=== PATIENT | male | born 1940 | race Caucasian/White ===

== ENCOUNTER 2016-07-17 14:24 | Emergency (ER) | payer OTHER ==
[2016-07-17 15:00] VITALS: BP 134/89
--- NOTE | 2016-07-17 15:14 | EDM.PDOC ---
[id number] CAN'T SLEEP AND HURT ALL OVER Time Seen by Provider: 07/17/16 15:08 Source of Information: Reports: Patient History Limitations: Reports: No limitations - History of Present Illness INITIAL COMMENTS - FREE TEXT/NARRATIVE: pt arrived with high temp and total body aches. He had a deer tick bite late in the season. He has not felt well since that time. He has had alot of body aches. Onset: gradual Duration: Day(s):, Other ( Much worse in the last 2 days. ) Location: Reports: generalized Associated Symptoms: Reports: diaphoresis, fever/chills, weakness, other ( total body pain. ) Generalized Pain Score (Numeric/FACES): 7 - Related Data Allergies Allergy/AdvReac Type Severity Reaction Status Date / Time No Known Allergies Allergy Verified 07/17/16 14:53 Home Meds: Home Meds Acetaminophen [Tylenol] 650 mg PO Q4H PRN 07/17/16 [History] Past Medical History HEENT History: Reports: Other (see below) Other HEENT History: hard of hearing Oncologic (Cancer) History: Reports: Prostate Other Oncologic History: 10 years ago - Past Surgical History HEENT Surgical History: Reports: None Musculoskeletal Surgical History: Reports: Other (see below) Other Musculoskeletal Surgeries/Procedures:: steel pins in left wrist Oncologic Surgical History: Reports: None Social & Family History - Tobacco Use Smoking Status *Q: Never Smoker Second Hand Smoke Exposure: No - Caffeine Use Caffeine Use: Reports: Coffee - Alcohol Use Days Per Week of Alcohol Use: 1 Number of Drinks Per Day: 1 Total Drinks Per Week: 1 - Recreational Drug Use Recreational Drug Use: No ED ROS GENERAL - Review of Systems Review Of Systems: See Below Constitutional: Reports: fever, chills, malaise HEENT: Reports: No symptoms Respiratory: Reports: No Symptoms Cardiovascular: Reports: No symptoms Endocrine: Reports: no symptoms GI/Abdominal: Reports: No symptoms : Reports: no symptoms, other ( Pt does have a history of ca of the prostate. ) Musculoskeletal: Reports: muscle pain, muscle stiffness Skin: Reports: no symptoms ED EXAM, GENERAL - Physical Exam Exam: See Below Free Text/Narrative:: Pt arrived with alot of joint pain and a fever. He has not felt well for several weeks. Exam Limited By: No limitations General Appearance: alert, mild distress Ears: normal TMs Nose: normal inspection Throat/Mouth: Normal inspection Head: atraumatic Neck: normal inspection Respiratory/Chest: no respiratory distress Cardiovascular: regular rate, rhythm GI/Abdominal: soft, non tender Rectal (Males) Exam: Deferred Back Exam: normal inspection Extremities: normal inspection Neurological: alert, oriented, normal cognition Course - Vital Signs Last Recorded V/S: Last Vital Signs Temp 38.7 C H 07/17/16 16:40 Pulse 73 07/17/16 14:49 Resp 16 07/17/16 14:49 BP 134/89 07/17/16 14:49 Pulse Ox 96 07/17/16 14:49 - Orders/Labs/Meds Labs: Laboratory Tests 07/17/16 07/17/16 07/17/16 Range/Units 15:24 15:24 15:26 WBC 9.0 (4.5-11.0) K/uL RBC 4.69 (4.30-5.90) M/uL Hgb 15.7 H (12.0-15.0) g/dL Hct 44.6 (40.0-54.0) % MCV 95 (80-98) fL MCH 34 H (27-31) pg MCHC 35 (32-36) % Plt Count 173 (150-400) K/uL Neut % (Auto) 84 H (36-66) % Lymph % (Auto) 8 L (24-44) % [place] % (Auto) 8 H (2-6) % Eos % (Auto) 0 L (2-4) % Baso % (Auto) 0 (0-1) % Sodium 141 (140-148) mmol/L Potassium 4.2 (3.6-5.2) mmol/L Chloride 106 (100-108) mmol/L Carbon Dioxide 25 (21-32) mmol/L Anion Gap 9.9 (5.0-14.0) mmol/L BUN 16 (7-18) mg/dL Creatinine 1.2 (0.8-1.3) mg/dL Est Cr Clr Drug Dosing 49.88 mL/min Estimated GFR (MDRD) 59 L (>60) Glucose 110 H (74-106) mg/dL Calcium 8.6 (8.5-10.1) mg/dL Total Bilirubin 1.4 H (0.2-1.0) mg/dL AST 60 H (15-37) U/L ALT 62 (12-78) U/L Alkaline Phosphatase 70 (46-116) U/L C-Reactive Protein 8.50 H (0.0-0.3) mg/dL Total Protein 7.0 (6.4-8.2) g/dL Albumin 3.2 L (3.4-5.0) g/dL Globulin 3.8 H (2.3-3.5) g/dL Albumin/Globulin Ratio 0.8 L (1.2-2.2) Urine Color Yellow Urine Appearance Clear Urine pH 5.0 (4.5-8.0) Ur Specific Wilmer 1.020 (1.008-1.030) Urine Protein Negative (NEGATIVE) mg/dL Urine Glucose (UA) Normal (NEGATIVE) mg/dL Urine Ketones 15 H (NEGATIVE) mg/dL Urine Occult Blood Moderate (NEGATIVE) Urine Nitrite Negative (NEGAITVE) Urine Bilirubin Negative (NEGATIVE) Urine Urobilinogen Normal (NORMAL) mg/dL Ur Leukocyte Esterase Negative (NEGATIVE) Urine RBC 0-5 (0-5) Urine WBC Not seen (0-5) Ur Epithelial Cells Rare Amorphous Sediment Not seen Urine Bacteria Few Urine Mucus Moderate Meds: Medications Discontinued Medications Generic Name Dose Route Start Last Admin Trade Name [place] PRN Reason Stop Dose Admin Acetaminophen 650 mg 07/17/16 16:21 07/17/16 16:40 Tylenol PO 07/17/16 16:22 650 mg NOW ONE Administration Sodium Chloride 1,000 mls @ 999 mls/hr 07/17/16 16:30 07/17/16 17:00 Normal Saline IV 999 mls/hr ASDIRECTED EDUARDO Administration Doxycycline Hyclate 100 mg/ 100 mls @ 100 mls/hr 07/17/16 16:20 07/17/16 17: 03 Sodium Chloride IV 07/17/16 17:19 100 mls/hr ONETIME ONE Administration - Re-Assessments/Exams Free Text/Narrative Re-Assessment/Exam: 07/17/16 16:49 crp is quite elevated at 8.5. his wbc is not high, platlets borderline. sgot is elevated as is the bilirubin. 07/17/16 16:51 pt had a liter of fluid. He was given tylenol to bring the temp down. He had blood cultures drawn and he was given doxycline 100mg iv. 07/17/16 16:57 Pt had an influ a and b run and they were both neg. Departure - Departure Time of Disposition: 18:20 Disposition: Home, Self-Care 01 Condition: fair Clinical Impression: At high risk for tick borne illness Instructions: Lyme Disease, Ehrlichiosis and Anaplasmosis Referrals: Sanket Gonsalez MD [Primary Care Provider] - Forms: ED Department Discharge Care Plan Goals: push fluids, doxycyline 100mg bid with a small amount of food, will notify regarding tick studies tylenol and motrin for fevers.
[2016-07-17] MEDS ORDERED: Doxycycline 100 MG in Sodium Chloride 0.9% 100 ML IV ONE (16:20)
[2016-07-17] MEDS ORDERED: Acetaminophen 325 MG Tab PO ONE (16:21)
[2016-07-17] MEDS ORDERED: Sodium Chloride 0.9% 1,000 ML IV SCH (16:30)
--- NOTE | 2016-07-18 09:25 | CR ---
Chest 1V Frontal HISTORY: fever COMPARISON: 10/25/2007 FINDINGS: Lungs appear clear and normally aerated. Cardiomediastinal silhouette is within normal limits. No va scular redistribution or pleural fluid can be seen. Bony structures and soft tissues are unremarkabl e. IMPRESSION: No acute chest abnormality identified.
== END 2016-07-17 18:26 | disposition home or self-care (01) ==
LOC: JP.ED 14:24
DX: Z91.89 Other specified personal risk factors, not elsewhere classified (principal); Z85.46 Personal history of malignant neoplasm of prostate
CPT/HCPCS: 36415; 71010; 80053; 81001; 85025; 86140; 86618; 86666; 86698; 87040; 87804; 96365; 99284; A9270; J7030; J7040

== ENCOUNTER 2021-03-11 08:50 | Emergency (ER) | payer OTHER ==
[2021-03-11 09:01] VITALS: BP 156/83; PULSE 51
[2021-03-11] MEDS ORDERED: methylPREDNISolone Sodium Succinate 40 MG/1 ML SDV IM ONE (09:14)
--- NOTE | 2021-03-11 09:19 | EDM.PDOC ---
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 - Related Data Allergies Allergy/AdvReac Type Severity Reaction Status Date / Time No Known Allergies Allergy Verified 02/10/17 08:44 Home Meds: Home Meds Acetaminophen [Tylenol] 650 mg PO Q4H PRN 07/17/16 [History] Aspirin 1 tab PO DAILY 02/08/17 [History] Calcium Citrate/Vitamin D3 [Calcium Citrate + D] 1 tab PO DAILY 02/08/17 [History] Multivitamin [Multivitamins] 1 cap PO DAILY 02/08/17 [History] predniSONE [Prednisone] 20 mg PO DAILY #7 tablet 03/11/21 [Rx] Past Medical History HEENT History: Reports: Other (See Below) Other HEENT History: hard of hearing Oncologic (Cancer) History: Reports: Prostate Other Oncologic History: 10 years ago - Infectious Disease History Infectious Disease History: Reports: Chicken Pox, Measles, Mumps - Past Surgical History HEENT Surgical History: Reports: None Musculoskeletal Surgical History: Reports: Other (See Below) Other Musculoskeletal Surgeries/Procedures:: steel pins in left wrist Oncologic Surgical History: Reports: None Social & Family History - Tobacco Use Tobacco Use Status *Q: Never Tobacco User - Caffeine Use Caffeine Use: Reports: Coffee ED ROS GENERAL - Review of Systems Review Of Systems: See Below Constitutional: Reports: No Symptoms Respiratory: Reports: No Symptoms Cardiovascular: Reports: No Symptoms GI/Abdominal: Reports: No Symptoms Skin: Reports: Rash ED EXAM, SKIN/RASH Exam: See Below Text/Narrative:: Examination of the rash he does have a macular papular rash no wheals it is in patches trunk anterior posterior upper and lower extremities Exam Limited By: No Limitations General Appearance: Alert, WD/WN, No Apparent Distress Respiratory/Chest: No Respiratory Distress Course - Vital Signs Last Recorded V/S: Last Vital Signs Temp 97.2 F 03/11/21 09:00 Pulse 51 L 03/11/21 09:00 Resp 16 03/11/21 09:00 BP 156/83 H 03/11/21 09:00 Pulse Ox 99 03/11/21 09:00 - Orders/Labs/Meds Orders: Active Orders 24 hr Category Date Time Status methylPREDNISolone Sod Succ [Solu-MEDROL] Med 03/11/21 09:14 Once 40 mg IM ONETIME ONE Departure - Departure Time of Disposition: :18 Disposition: Home, Self-Care 01 Condition: Fair Clinical Impression: Allergic drug rash due to multiple agents - Discharge Information Instructions: Contact Dermatitis, [id number] Referrals: PCP,None [Primary Care Provider] - Additional Instructions: Try the prednisone 1 tablet once a day take this for the next week you can start tomorrow, please followup with your primary care provider in 5-7 days if not better, please call return to the emergency department with worsening of symptoms. Sepsis Event Note (ED) - Evaluation Sepsis Screening Result: No Definite Risk - Focused Exam Vital Signs: Vital Signs Temp Pulse Resp BP Pulse Ox 03/11/21 09:00 97.2 F 51 L 16 156/83 H 99 - My Orders Last 24 Hours: My Active Orders 03/11/21 09:14 methylPREDNISolone Sod Succ [Solu-MEDROL] 40 mg IM ONETIME ONE - Assessment/Plan Last 24 Hours: My Active Orders 03/11/21 09:14 methylPREDNISolone Sod Succ [Solu-MEDROL] 40 mg IM ONETIME ONE Plan: Assessment Acuity = acute Site and laterality = allergic rash Etiology = unknown Manifestations = pruritus Location of injury = Home Lab values = none Plan Elected to treat empirically Solu-Medrol 40 mg IM x1 followed by prednisone 20 mg once a day for 7 days follow-up primary care in 5 to 7 days if no improvement This note was dictated using [employer] voice recognition software please call with any questions on syntax or grammar.
== END 2021-03-11 09:43 | disposition home or self-care (01) ==
LOC: JP.ED 08:50
DX: R21 Rash and other nonspecific skin eruption (principal); T50.905A Adverse effect of unspecified drugs, medicaments and biological substances, initial encounter; Z79.82 Long term (current) use of aspirin
CPT/HCPCS: 96372; 99282; J2920

== ENCOUNTER 2021-09-25 08:17 | Emergency (ER) | payer OTHER ==
[2021-09-25 08:35] VITALS: BP 137/67; PULSE 56
[2021-09-25] MEDS ORDERED: Ketorolac 30 MG/ML SDV IM ONE (08:53)
== END 2021-09-25 09:19 | disposition home or self-care (01) ==
LOC: JP.ED 08:17
DX: G89.29 Other chronic pain (principal); M25.511 Pain in right shoulder; M25.512 Pain in left shoulder; Z79.899 Other long term (current) drug therapy; Z79.82 Long term (current) use of aspirin
CPT/HCPCS: 96372; 99283; J1885

== ENCOUNTER 2022-12-15 09:10 | Emergency (ER) | payer OTHER ==
[2022-12-15 09:17] VITALS: BP 140/97; PULSE 71
== END 2022-12-15 10:23 | disposition home or self-care (01) ==
LOC: JP.ED 09:10
DX: S39.012A Strain of muscle, fascia and tendon of lower back, initial encounter (principal); M19.90 Unspecified osteoarthritis, unspecified site; Z79.82 Long term (current) use of aspirin
CPT/HCPCS: 99283